=== PATIENT | female | born 1965 | race Caucasian/White ===

== ENCOUNTER 2019-03-05 08:01 | Emergency (ER) | payer OTHER ==
[2019-03-05] MEDS ORDERED: Sodium Chloride 0.9% 10 ML Syringe FLUSH PRN (08:49)
[2019-03-05] MEDS ORDERED: Metoclopramide 10 MG/2 ML SDV IVPUSH ONE (08:50)
[2019-03-05] MEDS ORDERED: LORazepam 2 MG/ML SDV IVPUSH ONE (08:50)
[2019-03-05] MEDS ORDERED: Ketorolac 30 MG/ML SDV IVPUSH ONE (08:51)
--- NOTE | 2019-03-05 09:04 | EDM.PDOC ---
<Ashlie Villagomez - Last Filed: 03/05/19 09:23> ED HPI GENERAL MEDICAL PROBLEM - General Chief Complaint: Neuro Symptoms/Deficits Stated Complaint: BACK PAIN/ABD PAIN Time Seen by Provider: 03/05/19 08:39 Source of Information: Reports: Patient, Family History Limitations: Reports: No Limitations - History of Present Illness INITIAL COMMENTS - FREE TEXT/NARRATIVE: 53-year-old female presents with dizziness and right sided sciatic pain. She states that the dizziness has been occurring several times a day since she moved to the area in October, however, it was the worst it has ever been last night and into this morning. She was only able to get 2 hours of sleep. She describes the dizziness as "room spinning." The patient is also experiencing tinnitus, but is unsure if it bilateral or one-sided. She denies hearing loss, but does have an extensive family history of hearing loss. The sciatic pain is chronic. She had a lumbar discectomy done in January a couple years back. After the surgery, the pain improved from going into her foot, to going into her knee. Duration: Chronic, Intermittent Location: Reports: Head, Back Quality: Reports: Ache (down the back of the right leg to the knee ) Severity: Moderate Improves with: Reports: Other (movement helps the back pain) Worsens with: Reports: Other (standing still worsens the back pain, patient is unsure if movement worsens dizziness) Associated Symptoms: Reports: Other (tinnitus, dizziness, sciatic pain (right side)). Denies: Headaches, Nausea/Vomiting, Syncope, Weakness Left Lower Back Pain Score (Numeric/FACES): 6 - Related Data Allergies Allergy/AdvReac Type Severity Reaction Status Date / Time Penicillins Allergy Hives Verified 03/05/19 08:32 Home Meds: Home Meds Meclizine [Antivert] 25 mg PO TID #21 tab.chew 03/05/19 [Rx] buPROPion [Wellbutrin] 150 mg PO DAILY 03/05/19 [History] Past Medical History Musculoskeletal History: Reports: Other (See Below) Other Musculoskeletal History: chronic sciatica Neurological History: Reports: Vertigo Social & Family History - Tobacco Use Smoking Status *Q: Never Smoker ED ROS GENERAL - Review of Systems Review Of Systems: See Below Constitutional: Reports: No Symptoms HEENT: Reports: Vertigo. Denies: Ear Pain, Hearing Loss, Vision Change Respiratory: Reports: No Symptoms Cardiovascular: Reports: No Symptoms Endocrine: Reports: No Symptoms GI/Abdominal: Reports: No Symptoms : Reports: No Symptoms Musculoskeletal: Reports: Back Pain (lumbar region), Leg Pain (right sciatic pain into the back of the knee) Skin: Reports: No Symptoms Neurological: Reports: Dizziness, Difficulty Walking (due to sciatic pain and dizziness). Denies: Headache, Numbness, Tingling, Change in Speech Psychiatric: Reports: No Symptoms Hematologic/Lymphatic: Reports: No Symptoms ED EXAM, NEURO - Physical Exam Exam: See Below Exam Limited By: No Limitations General Appearance: Alert, WD/WN, Mild Distress Eye Exam: Bilateral Eye: EOMI, Normal Inspection, PERRL Ears: Normal External Exam, Normal Canal, Hearing Grossly Normal, Normal TMs, Other (right side difficult to see due to cerumen ) Head Exam: Atraumatic, Normocephalic Respiratory/Chest: No Respiratory Distress, Lungs Clear, Normal Breath Sounds, No Accessory Muscle Use Cardiovascular: Normal Peripheral Pulses, Regular Rate, Rhythm, No Murmur Neurological: Alert, Normal Mood/Affect, CN II-XII Intact, No Motor/Sensory Deficits, Straight Leg Raise (R) (mild pain from the back into the knee around 50 degrees ). No: Abnormal Finger to Nose, Abnormal Sensation, Straight Leg Raise (L) Psychiatric: Normal Affect, Normal Mood Skin Exam: Warm, Dry, Intact, Normal Color, No Rash Course - Vital Signs Last Recorded V/S: Last Vital Signs Temp 98.7 F 03/05/19 08:23 Pulse 60 03/05/19 08:23 Resp 16 03/05/19 08:23 BP 100/73 03/05/19 08:23 Pulse Ox 98 03/05/19 08:23 - Orders/Labs/Meds Orders: Active Orders 24 hr Category Date Time Status Peripheral IV Care [RC] . DIRECTED Care 03/05/19 08:50 Ordered Sodium Chloride 0.9% [Saline Flush] Med 03/05/19 08:49 Ordered 10 ml FLUSH ASDIRECTED PRN Peripheral IV Insertion Adult [OM.PC] Routine Oth 03/05/19 08:49 Ordered Medication Orders Sodium Chloride (Saline Flush) 10 ml FLUSH ASDIRECTED PRN PRN Reason: Keep Vein Open Last Admin: 03/05/19 09:39 Dose: 10 ml Labs: Laboratory Tests 03/05/19 03/05/19 03/05/19 Range/Units 08:18 09:20 09:20 WBC 9.75 (3.98-10.04) K/mm3 RBC 4.56 (3.98-5.22) M/mm3 Hgb 14.3 (11.2-15.7) gm/dl Hct 42.9 (34.1-44.9) % MCV 94.1 (79.4-94.8) fl MCH 31.4 (25.6-32.2) pg MCHC 33.3 (32.2-35.5) g/dl RDW Std Deviation 42.2 (36.4-46.3) fL Plt Count 384 H (182-369) K/mm3 MPV 9.3 L (9.4-12.3) fl Neut % (Auto) 64.9 (34.0-71.1) % Lymph % (Auto) 24.4 (19.3-51.7) % [place] % (Auto) 7.7 (4.7-12.5) % Eos % (Auto) 2.3 (0.7-5.8) Baso % (Auto) 0.4 (0.1-1.2) % Neut # (Auto) 6.33 H (1.56-6.13) K/mm3 Lymph # (Auto) 2.38 (1.18-3.74) K/mm3 [place] # (Auto) 0.75 H (0.24-0.36) K/mm3 Eos # (Auto) 0.22 (0.04-0.36) K/mm3 Baso # (Auto) 0.04 (0.01-0.08) K/mm3 Sodium 138 (136-145) mEq/L Potassium 3.7 (3.5-5.1) mEq/L Chloride 102 (98-107) mEq/L Carbon Dioxide 26 (21-32) mEq/L Anion Gap 13.7 (5-15) BUN 16 (7-18) mg/dL Creatinine 0.8 (0.55-1.02) mg/dL Est Cr Clr Drug Dosing 73.18 mL/min Estimated GFR (MDRD) > 60 (>60) mL/min BUN/Creatinine Ratio 20.0 H (14-18) Glucose 89 (74-106) mg/dL Calcium 8.9 (8.5-10.1) mg/dL Magnesium 2.1 (1.8-2.4) mg/dl Total Bilirubin 0.4 (0.2-1.0) mg/dL AST 21 (15-37) U/L ALT 32 (14-59) U/L Alkaline Phosphatase 82 (46-116) U/L Total Protein 7.4 (6.4-8.2) g/dl Albumin 3.5 (3.4-5.0) g/dl Globulin 3.9 gm/dL Albumin/Globulin Ratio 0.9 L (1-2) TSH 3rd Generation 3.993 H (0.358-3.74) uIU/mL Urine Color Yellow (Yellow) Urine Appearance Clear (Clear) Urine pH 7.0 (5.0-8.0) Ur Specific [place] 1.015 (1.005-1.030) Urine Protein Negative (Negative) Urine Glucose (UA) Negative (Negative) Urine Ketones Negative (Negative) Urine Occult Blood Negative (Negative) Urine Nitrite Negative (Negative) Urine Bilirubin Negative (Negative) Urine Urobilinogen 0.2 (0.2-1.0) Ur Leukocyte Esterase Negative (Negative) Urine RBC Not seen (0-5) /hpf Urine WBC 0-5 (0-5) /hpf Ur Epithelial Cells 0-5 (0-5) /hpf Urine Bacteria Not seen (FEW) /hpf Urine Mucus Not seen (FEW) /hpf Meds: Medications Generic Name Dose Route Start Last Admin Trade Name Jose Carlos PRN Reason Stop Dose Admin Sodium Chloride 10 ml 03/05/19 08:49 03/05/19 09:39 Saline Flush FLUSH 10 ml ASDIRECTED PRN Administration Keep Vein Open Discontinued Medications Generic Name Dose Route Start Last Admin Trade Name Frericardo PRN Reason Stop Dose Admin Ketorolac Tromethamine 30 mg 03/05/19 08:51 03/05/19 09:37 Toradol IVPUSH 03/05/19 08:52 30 mg ONETIME ONE Administration Lorazepam 1 mg 03/05/19 08:50 03/05/19 09:38 Ativan IVPUSH 03/05/19 08:51 1 mg ONETIME ONE Administration Meclizine HCl 25 mg 03/05/19 08:49 Antivert PO 03/05/19 08:50 ONETIME ONE Metoclopramide HCl 10 mg 03/05/19 08:50 03/05/19 09:36 Reglan IVPUSH 03/05/19 08:51 10 mg ONETIME ONE Administration Departure - Departure Disposition: Home, Self-Care 01 Clinical Impression: Right sided sciatica BPPV (benign paroxysmal positional vertigo) Qualifiers: Laterality: unspecified laterality Qualified Code(s): H81.10 - Benign paroxysmal vertigo, unspecified ear - Discharge Information Instructions: Vertigo, [id number] Referrals: PCP,None [Primary Care Provider] - Forms: ED Department Discharge Additional Instructions: You were evaluated in the ER today regarding your dizziness and back pain. Your laboratory evaluation demonstrated no acute abnormalities, however your TSH was mildly elevated at 3.993. Our high limit of normal is 3.74, so this is only very mildly elevated. Recommend you have this lab redrawn in a couple weeks to see if it does not go down before treatment for hypothyroidism should be considered. You were given some IV medications to help your dizziness, this did seem to help provide you pretty good relief, the Toradol also help provide you from your neck pain. You were given a prescription for meclizine, please take 25 mg 3 times a day for further vertigo relief. Highly recommend you set up care with a primary care provider, our [facility] number [phone], any family practice provider should be able to provide you with the services. Please call as soon as you are able to obtain an appointment at the next available time for management. You may also want to consider looking throughout the area for chiropractors that provide vertigo services, or discuss a PT referral with your primary care provider that you set up with for back pain relief and vertigo relief. Please return to the ER at any time however if symptoms change or worsen. Sepsis Event Note - Evaluation Sepsis Screening Result: No Definite Risk - Focused Exam Vital Signs: Vital Signs Temp Pulse Resp BP Pulse Ox 03/05/19 08:23 98.7 F 60 16 100/73 98 Date Exam was Performed: 03/05/19 Time Exam was Performed: 09:23 - My Orders Last 24 Hours: My Active Orders 03/05/19 08:49 Sodium Chloride 0.9% [Saline Flush] 10 ml FLUSH ASDIRECTED PRN Peripheral IV Insertion Adult [OM.PC] Routine 03/05/19 08:50 Peripheral IV Care [RC] . DIRECTED - Assessment/Plan Last 24 Hours: My Active Orders 03/05/19 08:49 Sodium Chloride 0.9% [Saline Flush] 10 ml FLUSH ASDIRECTED PRN Peripheral IV Insertion Adult [OM.PC] Routine 03/05/19 08:50 Peripheral IV Care [RC] . DIRECTED <TiftNidia - Last Filed: 03/05/19 10:43> ED HPI GENERAL MEDICAL PROBLEM - History of Present Illness INITIAL COMMENTS - FREE TEXT/NARRATIVE: I have read and reviewed the student's HPI and examined the patient and agree with LAURA Morales-student. Course - Re-Assessments/Exams Free Text/Narrative Re-Assessment/Exam: 03/05/19 09:21 Patient presents to the ED for evaluation of acute on chronic dizziness, and chronic sciatic pain. As the patient is recently moved here within the last 5 months, I will suggest that she obtain a primary care provider for her chronic issues, however I do believe that her dizziness is due to BPPV at this time, she will be treated as such and will also have some labs done to rule out any other acute abnormalities. She will be given some Toradol, Reglan, and Ativan for combination of her back pain and dizziness. We will likely try to get her in with PT referral for her back and dizziness as well. 03/05/19 10:35 Patient's labs are back, and demonstrate no acute abnormalities, her TSH is mildly elevated at 3.993. I did explain to them that this is very mildly elevated, and that she should have this level redrawn within a couple weeks to see if it does not go down before treatment for hypothyroidism should be considered. They seem to be understanding of this. I did reassess the patient , she states that her dizziness has improved with the medications given. So I will send her some meclizine, and have her follow-up with a regular care provider for further management. Departure - Departure Time of Disposition: 10:37 Condition: Fair - Discharge Information *PRESCRIPTION DRUG MONITORING PROGRAM REVIEWED*: No *COPY OF PRESCRIPTION DRUG MONITORING REPORT IN PATIENT KAROL: No Sepsis Event Note - Focused Exam Date Exam was Performed: 03/05/19 Time Exam was Performed: 10:34
== END 2019-03-05 11:05 | disposition home or self-care (01) ==
LOC: JD.ED 08:01
DX: M54.41 Lumbago with sciatica, right side (principal); H81.10 Benign paroxysmal vertigo, unspecified ear; Z88.0 Allergy status to penicillin
CPT/HCPCS: 36415; 80053; 81001; 83735; 84443; 85025; 96374; 96375; 99284; J1885; J2060; J2765; 99283